=== PATIENT | female | born 1975 | race Caucasian/White ===

== ENCOUNTER 2018-07-16 21:33 | Emergency (ER) | payer BC ==
--- OUTSIDE RECORDS SUMMARY | 2018-07-16 21:42 | XMS REPORT | Continuity of Care Document ---
:1975 External Reference #:[id number] Author Name Cici Chung, BRADLEY, STORAGE ARCHITECT, Ibclc Address [address] [place] [address] Care Team Providers Name Role Phone Cici Chung PNP-BC, STORAGE ARCHITECT, Ibclc Care Team Information Facsimile Operator Unavailable Cici Chung PNP-BC, STORAGE ARCHITECT, Ibclc Primary Care Physician Unavailable Payers Date Identification Numbers Payment Provider Subscriber Policy Number: [id number] Jose Luis Melara PayID: [id number] [address] [address] [place] [address] Advance Directives Description No Information Available Problems Active Problems Provider Date Abnormal weight gain Tomasa Pulido MD Onset: 01/07/2011 Family History Date Family Member(s) Observation Comments Grandfather Diabetes Social History Type Date Description Comments Sex Unknown Lives With Lives With Children Diet Healthy, Well Balanced Occupation Homemaker Tobacco Use Start: Unknown Never Smoked Cigarettes Smoking Status Reviewed: 07/13/18 Never Smoked Cigarettes ETOH Use Negative For Rarely consumes alcohol Tobacco Use Start: Unknown Patient has never smoked Allergies, Adverse Reactions, Alerts Description No Known Drug Allergies Medications Active Medications SIG Qnty Indications Ordering Provider Date Lansoprazole 1 by mouth every 60caps R10.84 Cici Chung, 07/13/2018 15mg day and up to RICARDO HUERTA, Capsules DR twice a day if Ibclc needed History Medications No Active Medications Unknown 07/13/2018 - 07/13/2018 Penicillin V 1 tab by mouth 20tabs J02.0 Marley Dowd M.D. 11/07/2015 - Potassium twice a day x 07/13/2018 500mg Tablets 10 days No Active Medications Unknown 07/26/2015 - 11/07/2015 AD 1 po qd 30tabs Isaiah, 11/11/2012 - Tablets MD Tomasa 07/26/2015 Immunizations CPT Code Status Date Vaccine Lot # [id number] Given 01/03/2014 flu vaccination 30945 Given 03/29/2012 flu vaccination 39216 Given 07/26/2009 Tdap injection Vital Signs Date Vital Result Comment 07/13/2018 3:24pm BP Systolic Sitting Left Arm 112 mmHg BP Diastolic Sitting Left Arm 72 mmHg Body Temperature 100.6 F Heart Rate 111 /min Weight 237.38 lb O2 % BldC Oximetry 98 % 11/07/2015 4:50pm BP Systolic 130 mmHg BP Diastolic 78 mmHg Body Temperature 102.8 F Height 68 inches 5'8" Weight 216.38 lb BMI (Body Mass Index) 32.9 kg/m2 BSA (Body Surface Area) 2.11 m2 [place] body weight in kilograms 63 kg 07/26/2015 2:26pm BP Systolic 132 mmHg BP Diastolic 84 mmHg Height 67 inches 5'7" Weight 216.00 lb BMI (Body Mass Index) 33.8 kg/m2 BSA (Body Surface Area) 2.09 m2 Last Menstrual Period [id number] 11/11/2012 11:52am BP Systolic 124 mmHg BP Diastolic 62 mmHg Height 67 inches 5'7" Weight 232.00 lb 01/22/2011 10:09am BP Systolic 108 mmHg BP Diastolic 88 mmHg Body Temperature 98.2 F Height 67 inches 5'7" Weight 205.00 lb 01/07/2011 1:15pm BP Systolic 128 mmHg BP Diastolic 78 mmHg Weight 198.00 lb Results Test Date Facility Test Result H/L Range Note Laboratory test [facility] Cytopathology Results on 1 finding [address] Cervix/[place] [address] [phone] CBC W/Automated [facility] White Blood Count 6.7 K/uL 3.1-10.7 Diff [address] [place], [place] [id number] [phone] Red Blood Count 4.89 M/uL 3.90-5.40 Hemoglobin 13.7 gm/dL 11.6-15.8 Hematocrit 40.9 % 36.0-46.1 Mean Cell Volume 83.6 fl 80.9-99.0 Mean Corpuscular HGB 28.0 pg 25.9-32.7 Mean Corpuscular HGB Conc 33.5 g/dL 30.8-34.3 Platelet Count 380 K/uL High 155-360 Red Cell Distri Width SD 40.7 fl 3-47 Red Cell Distri Width %CV 13.5 % 11.7-14.4 Mean Platelet Volume 11.2 fL 8.9-12.4 Neut% 54.2 % 40.4-72.8 Lymph % 36.1 % 17.0-46.1 Aiken % 8.1 % 4.3-13.2 Eo% 1.3 % 0.0-6.6 Bas% 0.3 % 0.0-1.1 Neut# 3.63 K/uL 1.8-7.0 Lymph # 2.42 K/uL 1.8-7.0 Aiken # 0.54 K/uL 0.3-0.9 Eos # 0.09 K/uL 0.0-0.5 Baso # 0.02 K/uL 0.0-0.1 Laboratory test 07/26/2015 [facility] Thyroid Stim 1.42 uIU/mL 0.30-4.20 finding [address] [place] [address] [phone] Basic Metabolic 07/26/2015 [facility] Glucose 109 mg/dL High 74-106 Panel [address] [place] [address] [phone] BUN 15 mg/dL 7-18 Creatinine 0.7 mg/dL 0.6-1.3 Glom Filtration Rate, Estimate >60 mL/min >60 If >60 mL/min >60 2 BUN/Creat 21.4 ratio Sodium 139 mmol/L 136-145 Potassium 3.6 mmol/L 3.5-5.1 Chloride 105 mmol/L 98-107 Carbon Dioxide 27 mmol/L 21-32 Anion Gap 7 mEq/L Low 8-16 Calcium 8.4 mg/dL Low 8.5-10.1 LDL Cholesterol Profile 07/26/2015 [facility] Cholesterol 158 mg/dL <200 3 [address] [place] [address] [phone] Triglycerides 348 mg/dL High <150 4 HDL Cholesterol 42 mg/dL >40 5 LDL-Cholesterol 46 mg/dL < 100 6 Liver Function Tests 07/26/2015 [facility] Total Protein 7.3 g/dL 6.4-8.2 [address] [place] [address] [phone] Albumin 3.6 g/dL 3.4-5.0 Globulin 3.7 g/dL 1.9-4.3 Alb/Glob 1.0 ratio Bilirubin,Total 0.2 mg/dL 0.2-1.0 Bilirubin,Direct < 0.1 mg/dL 0.0-0.2 Bilirubin,Indirect 0.1 mg/dL 0.0-0.9 Sgot/Ast 17 U/L 15-37 SGPT/Alt 31 U/L 12-78 Alkaline Phosphatase 71 U/L 45-117 Laboratory test 07/26/2015 [facility] Cytology SEE RESULT 7, 8 finding [phone] Interface Order BELOW CBC 10/02/2012 N2N/CCD Import Hematocrit 22.6 % Low 36.0- 46.1 Hemoglobin 7.3 gm/dL Low 11.6-15.8 Mean Cell Volume 85.6 fl 80.9-99.0 Mean Corpuscular HGB 27.7 pg 25.9-32.7 Mean Corpuscular HGB Conc 32.3 g/dL 30.8-34.3 Mean Platelet Volume 11.0 fL 8.9-12.4 Platelet Count 321 K/uL 155-360 Red Blood Count 2.64 M/uL Low 3.90-5.40 Red Cell Distri Width %CV 14.5 % High 11.7-14.4 White Blood Count 15.0 K/uL High 3.1-10.7 CBC 10/01/2012 N2N/CCD Import Hematocrit 22.9 % Low 36.0-46.1 Hemoglobin 7.5 gm/dL Low 11.6-15.8 Mean Cell Volume 85.4 fl 80.9-99.0 Mean Corpuscular HGB 28.0 pg 25.9-32.7 Mean Corpuscular HGB Conc 32.8 g/dL 30.8-34.3 Mean Platelet Volume 11.2 fL 8.9-12.4 Platelet Count 278 K/uL 155-360 Red Blood Count 2.68 M/uL Low 3.90-5.40 Red Cell Distri Width %CV 14.4 % 11.7-14.4 White Blood Count 18.6 K/uL High 3.1-10.7 Laboratory test 09/29/2012 N2N/CCD Import Rapid Plasma Nonreactive 9 finding Reagin Nonreactive CBC 09/29/2012 N2N/CCD Import Hematocrit 33.9 % Low 36.0-4 6.1 Hemoglobin 11.4 gm/dL Low 11.6-15.8 Mean Cell Volume 82.5 fl 80.9-99.0 Mean Corpuscular HGB 27.7 pg 25.9-32.7 Mean Corpuscular HGB Conc 33.6 g/dL 30.8-34.3 Mean Platelet Volume 11.1 fL 8.9-12.4 Platelet Count 360 K/uL 155-360 Red Blood Count 4.11 M/uL 3.90-5.40 Red Cell Distri Width %CV 14.0 % 11.7-14.4 White Blood Count 11.4 K/uL High 3.1-10.7 Type And Screen 09/29/2012 N2N/CCD Import Antibody Screen Negative Negative Patient Blood Type B Pos Glycohemoglobin A1c 08/25/2012 N2N/CCD Import Glycohemoglobin (A1c) 5.6 % 4.8-6.0 10 eAG 114 mg/dL Laboratory test finding 08/19/2012 N2N/CCD Import Urine Culture See Note 11 Vaginal Strep Screen See Note 12 Chlamydia/GC 08/19/2012 N2N/CCD Import Chlamydia Negative Negative Amplification Trachomatis, Ameena Neisseria Gonorrhoeae, Ameena Negative Negative Please note: See Note 13 Hemoglobin/Hematacrit 08/04/2012 N2N/CCD Import Hematocrit 32 % Low 35- 47 Hemoglobin 11.1 g/dL Low 12.0-16.0 Laboratory test 08/04/2012 N2N/CCD Import Glucose 1 HR Post 158 mg/dL 70 -160 finding Prandial Laboratory test 04/19/2012 N2N/CCD Import Afp,Tetra Profile Ref#[id number] 14 finding 920 Dna Probe N. Gono 03/29/2012 N2N/CCD Import Dna Probe For See Note 15 + C. Trach. Chlamydia Trac. Dna Probe For N. Gonorrhoeae See Note 16 Genital Culture W/ Gram 03/29/2012 N2N/CCD Import Genital Culture See Note 17 Stain Gram Stain See Note 18 Type And 03/29/2012 N2N/CCD Import Antibody Screen Negative Negative Screen Patient Blood Type B Pos Affirm 03/29/2012 N2N/CCD Import Merari Negative 19 Gardnerella Positive Trichomonas Negative Laboratory test finding 03/29/2012 N2N/CCD Import Antibody Detection See Note 20 Bas% 0.2 % 0.0-1.1 Baso # 0.02 K/uL 0.0-0.1 Eo% 0.6 % 0.0-6.6 Eos # 0.05 K/uL 0.0-0.5 Hematocrit 38.4 % 36.0-46.1 Hemoglobin 13.3 gm/dL 11.6-15.8 Hepatitis B Surface Antigen Nonreactive Nonreactive 21 Lead,Blood (Adult) 1 g/dL 0-19 22 Lymph # 1.95 K/uL 0.8-3.4 Lymph % 22.2 % 17.0-46.1 Mean Cell Volume 85.7 fl 80.9-99.0 Mean Corpuscular HGB 29.7 pg 25.9-32.7 Mean Corpuscular HGB Conc 34.6 g/dL High 30.8-34.3 Mean Platelet Volume 11.1 fL 8.9-12.4 Aiken # 0.63 K/uL 0.3-0.9 Aiken % 7.2 % 4.3-13.2 Neut# 6.12 K/uL 1.0-7.0 Neut% 69.8 % 40.4-72.8 Platelet Count 409 K/uL High 155-360 Rapid Plasma Reagin Nonreactive Nonreactive 23 Red Blood Count 4.48 M/uL 3.90-5.40 Red Cell Distri Width %CV 13.4 % 11.7-14.4 Red Cell Distri Width SD 39.9 fl 3-47 Rubella IgG Antibody Reactive Reactive Urine Culture See Note 24 Varicella-Zoster Virus IgG Ab 1.41 Immune>1.09i 25 White Blood Count 8.8 K/uL 3.1-10.7 Laboratory test 03/29/2012 N2N/CCD Import ThinPrep Pap: See Note 26 finding Cervix/Endocx Laboratory test 01/07/2011 N2N/CCD Import TSH 1.55 MIU/ML 0.34-5. finding 60 Basic Metabolic 01/07/2011 N2N/CCD Import Anion Gap 7.0 mmol/L 2-11 27 Panel BUN 11 mg/dL 6-24 BUN/Creatinine Ratio 18.3 8-20 Calcium 9.7 mg/dL 8.1-9.9 Chloride 103 mmol/L 101-111 Co2 (Carbon Dioxide) 28.0 mmol/L 22-32 Creatinine 0.6 mg/dL 0.50-1.40 Glucose 92 mg/dL 70-100 One Over Creatinine 1.66 Potassium 3.9 mmol/L 3.5-5.0 Sodium 138 mmol/L 135-145 eGFR 147.2 > 60 28 eGFR Non- 114.4 > 60 CBC No Diff 01/07/2011 N2N/CCD Import Hematocrit 41 % 35-47 Hemoglobin 14.1 g/dL 12.0-16.0 Mean Corpuscular HGB Cone 35 g/dL 32-36 Mean Corpuscular Hemoglob 30 pg 27-31 Mean Corpuscular Volume 85 um3 79-97 Mean Platelet Volume 9.4 um3 7.4-10.4 Platelet Count 374 CUMM 150-450 Red Cell Count 4.78 CUMM 4.2-5.4 Redcell Distribution WDTH 12 % 10.5-15 White Blood Count 6.9 CUMM 4.8-10.8 Laboratory test finding 01/07/2011 N2N/CCD Import Cytology Pap See Note 29 1 Report may be viewed in PCI: Medical Record Forms -> LAB-[employer] Testing referred to: [facility] [address] * [place] [address] Ph.#. [phone] 2 Note: Persistent reduction for 3 months or more in an eGFR <60 mL/min/1.73 m2 defines CKD. Patients with eGFR values >/=60 mL/min/1.73 m2 may also have CKD if evidence of persistent proteinuria is present. The original MDRD equation for estimated GFR is not valid for patients less than 18 years of age. Additional information may be found at www.kdoqi.org. 3 Reference Guidelines*: Desirable: ........... < 200 mg/dL Borderline High: ..... 200-239 mg/dL High: ................ >=240 mg/dL * The National Cholesterol Education Program (NCEP) 4 Reference Guidelines*: Normal: ............. < 150 mg/dL Borderline High: .... 150-199 mg/dL High: ............... 200-499 mg/dL Very High: .......... > 500 mg/dL * Source: National Cholesterol Education Program (NCEP) 5 Reference Guidelines*: Low HDL: ..... < 40 mg/dL Normal: ..... 40-60 mg/dL Desirable: ... > 60 mg/dL *The National Cholesterol Education Program(NCEP) 6 Reference Guidelines*: Optimal:........... <100 mg/dL Near Optimal....... 100-129 mg/dL Borderline High.... 130-159 mg/dL High............... 160-189 mg/dL Very High.......... >=190 mg/dL * Source: National Cholesterol Education Program (NCEP) 7 [id number] 8 SEE RESULT BELOW Name: NAHUN MELARA : [address]: Tomasa Pulido MD Acct: [id number] Unit: [id number] AGE: 40 Location: [facility] Re07/26/15 SEX: F Status: REG REF SPEC: [id number] MUNIRA: 07/26/15-[address] [facility] [address]: Tomasa Pulido MD REQ: [id number] RECD: 07/27/151134 STATUS: RANDALL DOWLING DR: COUNT INCLUDES THE [facility], Lab _ ORDERED: IMAGE ANALYSIS COMMENTS: [id number] FINAL DIAGNOSIS Negative for Intraepithelial lesion or Malignancy A. Ectocervical/Endocervical Specimen Adequacy: Satisfactory of evaluation Transformation zone component identified Patient Information: HPV: Thin Layer Pap Test w/reflex to high risk HPV RNA testing when ASCUS Actual Specimen Date: 07/26/15 Last Menstrual Date: 06/20/15 ?: N Post Menopausal?: N Hysterectomy?: N Previous Abnormal Pap Smears?:N Signed (signature on file) LINA Sneed (ASCP) 07/30 0744 This Pap test was evaluated with the assistance of the VaxInnate Test Imaging System. Due to cytologic findings at the radiation technician microscope, comprehensive manual rescreening by a Retail Asset Protection Specialist may be required. The Pap Smear is a screening test designed to aid in the detection of premalignant and malignant conditions of the uterine cervix. It is not a diagnostic procedure and should not be used as the sole means of detecting cervical cancer. Both false- positive and false- negative reports do occur. Depending on your risk status, a Pap smear should be obtained and evaluated every 1-3 years. END OF REPORT * ML=Testing performed at Main Lab DEPARTMENT OF PATHOLOGY, [address] [place] [address] Rai Hernandez M.D. Director [facility] # [id number] PENDING; TEST PERFORMED ON MONDAYS AND THURSDAYS 10 A1c value between 5.7% and 6.4% is considered at increased risk for diabetes. A1c value greater than 6.5 % is considered essentially diagnostic for Type II diabetes. Current guidelines recommend a treatment goal of <7% for diabetic patients. This method will measure glycosylated hemoglobin variants, HbS, HbG , HbH, HbWayne, HbC, HbE, etc. Other hemoglobin- opathies may give incorrect results with this test. 11 COLONY COUNT ! 10,000 - 20,000 CFU/ml Organism 1 ! MIXED URETHRAL JANINA 12 NO GROUP B STREPTOCOCCI ISOLATED 13 Acceptable specimens for this test are male urethral swab, endocervical swab and liquid based pap specimens, vaginal swabs in APTIMA transports and first void urine. See online Directory of Services for test number for rectal and pharyngeal specimens. Performed at: RN - [facility] [address] [id number] Green Coffee Blender: Teetee Alves MD, Phone: [phone] FORWARDED TO REFERENCE LABORATORY. 15 NEGATIVE FOR CHLAMYDIA TRACHOMATIS BY DNA HYBRIDIZATION ASSAY. THIS TEST IS APPROVED FOR OCULAR AND UROGENITAL SITES ONLY. 16 NEGATIVE FOR NEISSERIA GONORRHOEAE BY DNA HYBRIDIZATION ASSAY. THIS METHOD IS APPROVED FOR UROGENITAL SITES ONLY. 17 GENITAL JANINA 18 GRAM STAIN ! GRAM STAIN SUSPICIOUS FOR BACTERIAL VAGINOSIS ! MODERATE GRAM VARIABLE COCCOBACILLI ! FEW GRAM POSITIVE COCCI 19 [facility] [address] [place] [address], [address] [place] [address] AFFIRM VAGINOSIS / VAGINITIS REPORT Name: Nahun Melara : 1975 (Age: 36) Sex: F Location: [facility] Med. Rec. # Date Collected: 03/29/2012 Billing #: [id number] Date Received: 03/30/2012 Physician(s): RISA GUADARRAMA MD Source of Specimen: Vaginal Results: Merari species DNA Probe NEGATIVE Gardnerella vaginalis DNA Probe POSITIVE Trichomonas vaginalis DNA Probe NEGATIVE Reported: 03/31/2012 Electronic Signature [facility] Wendy Judge MT [facility] Technical Laboratory [facility] ICD-9 Codes: A: 616.10 20 No reportable results 21 HBsAg not detected; does not exclude the possibility of exposure to or early acute infections with HBV. 22 The Centers for Disease Control and Prevention states blood lead levels less than 10 ug/dL in children have been associated with numerous adverse health effects. [facility] Guidelines: Blood lead levels in the range 5-9 ug/dL have been associated with adverse health effects in children aged 6 years and younger. Environmental Exposure: WHO Recommendation <20 Occupational Exposure: OSHA Lead Std 40 Detection Limit=1 23 PENDING; TEST PERFORMED ON MONDAYS AND THURSDAYS 24 COLONY COUNT ! 5,000 - 10,000 CFU/ml Organism 1 ! URETHRAL JANINA 25 Nonimmune <0.91 Equivocal 0.91 - 1.09 Immune >1.09 Performed at: RN - [facility] [address] [id number] Green Coffee Blender: Teetee Alves MD, Phone: [phone] CYTOLOGY SCREENER - [employer] @ 04/26 Screened by: LINA Stephen(ASCP) PAP: FINAL REPORT SPECIMEN ADEQUACY: SPECIMEN SATISFACTORY FOR INTERPRETATION INTERPRETATION: NEGATIVE FOR INTRAEPITHELIAL LESION OR MALIGNANCY COMMENT: BENIGN CELLULAR CHANGES ASSOCIATED WITH INFLAMMATION MODERATE INFLAMMATION THINPREP PREPARED PAP SLIDE # Prepared in the Cytology laboratory from the ThinPrep sample is 1 ThinPrep smear. PAP ACCESSI QUESTIONNAIRE 03/25 PERTINENT CLINICAL HISTORY FOR PAP ([employer]) CYTOLOGY (Check all that apply): ? Y Post ? Menopause? LMP date: If patient had related surgical procedure: Related Therapy: Significant Clinical History: ===== DISCLAIMER: The Pap smear is a screening test and not a diagnostic procedure. False negative and false positive results can and do occur for a number of reasons. Regular screening provides an aid in detecting treatable cervical abnormalities, but should not be used as the only means for detecting cervical dysplasia and carcinoma. ----- Jamey PAULANAFERNANDO Gina 03/30/12 1201 ----- 27 Anion gap measurement may be of limited value in the presence of any alkalosis, especially in a combined acid base disorder. . 28 Because ethnic data is not always readily available, this report includes an eGFR for both -Americans and non- Americans. The National Kidney Disease Education Program (NKDEP) does not endorse the use of the MDRD equation for patients that are not between the ages of 18 and 70, are , have extremes of body size, muscle mass, or nutritional status, or are non- or non-. According to the National Kidney Foundation, irrespective of diagnosis, the stage of the disease is based on the level of kidney function: Stage Description GFR(mL/min/1.73 m(2)) 1 Kidney damage with normal or decreased GFR 90 2 Kidney damage with mild decrease in GFR 60- 89 3 Moderate decrease in GFR 30-59 4 Severe decrease in GFR 15-29 5 Kidney failure <15 (or dialysis) 29 Cytology Laboratory [address] [place] [address], [address] [place] [address] CYTOLOGY REPORT Name: Nahun Melara Accession # : [id number] : 1975 (Age: 35) Sex: F Location: [facility] Soc. Sec. #: [id number] Date Collected: 01/07/2011 Billing #: [id number] Date Received: 01/09/2011 Physician(s): TOMASA PULIDO MD Source of Specimen: ENDOCERVICAL/ECTOCERVICAL THIN PREP Clinical Information: Date of Last Menstrual Period: 12/11/10 Menstrual History: Regular Specimen Adequacy: SATISFACTORY FOR EVALUATION. ADEQUATE ENDOCERVICAL/TRANSFORMATION ZONE. General Categorization : NEGATIVE FOR INTRAEPITHELIAL LESION OR MALIGNANCY. Descriptive Evaluation: SHIFT IN JANINA SUGGESTIVE OF BACTERIAL VAGINOSIS. tfn Electronic Signature LINA Schaefer (ASCP) Reported: 01/14/2011 Also seen by:LINA Schaefer (ASCP) Cytology Outreach [facility] ICD-9 Code(s) V72.31 A: 616.10 Procedures Date Code Description Status 11/11/2012 84772 Post- Care Only Completed 09/30/2012 86775 Section Only Completed 09/30/2012 55020 Anesthesia, Delivery Following Neuraxial Delivery Completed 09/29/2012 42830 Anesthesia,Neuraxial Labor Completed 09/27/2012 83339 Antepartum 7 Or More Total Office Visit Completed 09/20/2012 48363 Antepartum 7 Or More Total Office Visit Completed 09/13/2012 14403 Antepartum 7 Or More Total Office Visit Completed 09/02/2012 53059 Antepartum 7 Or More Total Office Visit Completed 08/19/2012 77484 Antepartum 7 Or More Total Office Visit Completed 08/04/2012 20452 Antepartum 7 Or More Total Office Visit Completed 06/30/2012 22558 Antepartum 7 Or More Total Office Visit Completed 05/27/2012 55226 Antepartum 7 Or More Total Office Visit Completed 05/19/2012 34554 Antepartum 7 Or More Total Office Visit Completed 04/29/2012 64979 Antepartum 7 Or More Total Office Visit Completed 03/29/2012 54202 Antepartum 7 Or More Total Office Visit Completed 07/23/2011 02472 Antepartum 7 Or More Total Office Visit Completed 05/14/2011 00113 Antepartum 7 Or More Total Office Visit Completed Encounters Type Date Location Provider Dx Diagnosis Office Visit 07/13/2018 Family Medicine Cici Chung, R10.84 Generalized 3:15p Jamie MCKEON PNP-BC, STORAGE ARCHITECT, abdominal pain Ibclc Z13.220 Encounter for screening for lipoid disorders Z13.1 Encounter for screening for diabetes mellitus Office Visit 11/07/2015 4:45p Family Medicine Marley Dowd, J02.0 Streptococcal Jamie MCKEON M.D. pharyngitis Office Visit 07/26/2015 1:30p Family Medicine [place], Z00.00 Encntr for general [place] LINDA Randolph MD adult medical exam w/o abnormal findings Plan of Treatment 07/13/2018 - Cici Chung, PNP-BC, STORAGE ARCHITECT, WbpimX57.84 Generalized abdominal painNew Medication:Lansoprazole 15 mg - 1 by mouth every day and up to twice a day if neededNew Labs:CBC W/Automated Diff, Ordered: 07/13/18H Pylori,Igm,Igg, Iga Antibodies, Ordered: 07/13/18Liver Function Tests, Ordered: 07/13/18Amylase , Ordered: 07/13/18Lipase, Ordered: 07/13/18Ebv Acute Infection Antibodies, Ordered: 07/13/18Comments:could very well be gerd/reflux but we'll do the other labs to make sure b/c of the low grade temps you've been having. if it gets worse, fever gets higher or you start vomiting then I need you to go to the ER. at your request we'll hold off on the CT scan until we see the labs and see if the lansoprazole helps.Z13.220 Encounter for screening for lipoid disordersNew Labs:LDL Cholesterol Profile, Ordered: 07/13/18Comments:since we haven't seen you in so long we'll get your screening blood work done too.Z13.1 Encounter for screening for diabetes mellitusNew Labs:Glycohemoglobin A1c, Ordered: 07/13/18
[2018-07-16 22:00] VITALS: BP 142/95
[2018-07-16] MEDS ORDERED: HYDROcodone/ACETAMIN 5-325 MG* 1 TAB PO ONE (22:17)
--- NOTE | 2018-07-16 22:17 | UC ---
Complaint Female HPI - HPI Summary HPI Summary: Per director of student affairs: "Left flank pain for 2 hours, urinary urgency; pain radiates to LLQ, temp 101.4 on 07/13 and 07/14. Pt saw PCP on 07/13/18 who gave pt dx of GERD for c/o sternal pain; pt also had blood work, WBC were a little high; Lansoprazole has given some relief of sternal pain. Pt denies CP." -cant get comfortable. + nauseated. urinary freq w/ little UOP. -here w mom -strongly denies chance of - History Of Current Complaint Chief Complaint: UCGI Stated Complaint: URINARY Time Seen by Provider: 07/16/18 22:13 Hx Last Menstrual Period: 06/26/18 Pain Intensity: 5 - Allergies/Home Medications Allergies/Adverse Reactions: Allergies Allergy/AdvReac Type Severity Reaction Status Date / Time No Known Allergies Allergy Verified 07/16/18 21:46 Home Medications: Home Medications Acetaminophen [Acetaminophen Extra Strength] 500 mg PO DAILY PRN 07/16/18 [ History Confirmed 07/16/18] Lansoprazole 15 mg PO DAILY 07/16/18 [History Confirmed 07/16/18] PMH/Surg Hx/FS Hx/Imm Hx Previously Healthy: Yes - Surgical History Surgical History: Yes Surgery Procedure, Year, and Place: c section 09/30/12 - Family History Known Family History: Positive: Hypertension - Social History Alcohol Use: Rare Substance Use Type: None Smoking Status (MU): Never Smoked Tobacco Review of Systems All Other Systems Reviewed And Are Negative: Yes Constitutional: Positive: Negative Skin: Positive: Negative Eyes: Positive: Negative ENT: Positive: Negative Respiratory: Positive: Negative Cardiovascular: Positive: Negative Gastrointestinal: Positive: Abdominal Pain, Nausea. Negative: Vomiting Genitourinary: Positive: Frequency. Negative: Dysuria, Hematuria Motor: Positive: Negative Neurovascular: Positive: Negative Musculoskeletal: Positive: Negative Neurological: Positive: Negative Psychological: Positive: Negative Is Patient Immunocompromised?: No Physical Exam Triage Information Reviewed: Yes Appearance: Ill-Appearing, Pain Distress - reathing deeply, holding LLQ, writhing in pain. moving frequently Vital Signs: Initial Vital Signs Temp 97.5 F 07/16/18 21:51 Pulse 96 07/16/18 21:51 Resp 16 07/16/18 21:51 BP 142/95 07/16/18 21:51 Pulse Ox 100 07/16/18 21:51 Vital Signs Reviewed: Yes Eye Exam: Normal ENT Exam: Normal Neck exam: Normal Respiratory Exam: Normal Respiratory: Positive: Lungs clear, Normal breath sounds, No respiratory distress, No accessory muscle use. Negative: Crackles, Rhonchi, Stridor, Wheezing Cardiovascular Exam: Normal Cardiovascular: Positive: RRR, No Murmur Abdomen Description: Positive: Guarding, Other: - tender LLQ and left flank.. Negative: Distended Musculoskeletal Exam: Normal Neurological Exam: Normal Psychological Exam: Normal Skin Exam: Normal Complaint Female Dx - Course Course Of Treatment: UA + 3 blood, + 1 pr, + 1 bili, 1.025, 5.5 ph, nit neg, Leuk + 1 -sx c/w renal colic vs pylenephritis -she prefers to have her Mom drive her to closest ER, [facility]. declines ambulance. vitals stable -BP elevated mod d/t pain. -s/w Yonny Kearney in [facility] wh accepts pt at 20:20 - Differential Dx/Diagnosis Differential Diagnosis/HQI/PQRI: Renal Colic, Ureteral Stone Provider Diagnosis: Left lower quadrant pain Discharge - Sign-Out/Discharge Documenting (check all that apply): Patient Departure All imaging exams completed and their final reports reviewed: No Studies - Discharge Plan Condition: Fair Disposition: HOME-RECOMMEND TO ED Patient Education Materials: Renal Colic (ED) Referrals: Marley Dowd MD [Primary Care Provider] - Additional Instructions: Go directly to the ER. - Billing Disposition and Condition Condition: FAIR Disposition: Home-Recommend to ED
== END 2018-07-16 22:27 | disposition home health service (06) ==
LOC: UCCORT 21:33
DX: R10.32 Left lower quadrant pain (principal); R39.15 Urgency of urination; R35.0 Frequency of micturition; R11.0 Nausea; R31.9 Hematuria, unspecified; R03.0 Elevated blood-pressure reading, without diagnosis of hypertension
CPT/HCPCS: 81003; 87086; 99213; G0463